=== PATIENT | female | born 1940 | race Caucasian/White ===

== ENCOUNTER → 2017-09-28 | Outpatient (CLI) | payer MEDICARE, OTHER ==
[~2017-09-28] MED LIST: ATENOLOL50 MG PO; BENICAR20 MG PO; COQ-10100 MG PO; EXCEDRIN MIGRA1 EAC3 PO; GLUCOSAMINE CH1 EAC2 PO; KRILL OIL500 MG PO; MECLIZINE HCL12.5 MG PO; OMEPRAZOLE PO; POTASSIUM CITR10 MEQ PO; POTASSIUM PO; PRAVASTATIN SOD10 MG PO; VESICARE5 MG PO; VITAMIN A8000 UNIT PO; VITAMIN B-121000 MC1 PO; VITAMIN C1000 MG PO; VITAMIN D1000 UNI1 PO; VITAMIN E400 UNI1 PO; ZINC SULFATE220 M1 PO
--- NOTE | 2017-09-29 10:31 | Diagnostic Imaging Report ---
PROCEDURE:HIPS BILAT W/PELVIS TECHNIQUE:Pelvis one view, right hip 2 views and left hip 2 views INDICATION:Bilateral hip pain radiating down the back of the hip COMPARISON:None. FINDINGS: Mild degenerative changes in bilateral hip joints. The hips are otherwise unremarkable. Moderate degenerative changes of the lower lumbar spine especially at L3-L4, L4-L5, and L5-S1. Mild to moderate degenerative changes in bilateral SI joints. No fractures or dislocations. CONCLUSION: 1. 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 2. Moderate degenerative changes in the lower lumbar spine. Recommend lumbar x-rays to evaluate L4-L5 and L5-S1. Dictated by: Diaz Cunningham M.D. on 09/28/2017 at 17:36 Electronically approved by: Diaz Cunningham M.D. on 09/28/2017 at 17:36
== END ==
LOC: RAD 16:33
PROVIDERS: ATTEND Family Medicine
DX: M25.552 Pain in left hip (principal); M25.551 Pain in right hip
CPT/HCPCS: 73521

== ENCOUNTER 2020-06-03 09:30 | Inpatient (IN) | payer MEDICARE, OTHER ==
[~2020-06-03] VITALS: Ht 157.5 cm; Wt 63.7 kg
[2020-06-03] MEDS ORDERED: DILTIAZEM HCL 5 MG/ML 5 ML VIAL IV STA (10:03)
[2020-06-03] MEDS ORDERED: SODIUM CHLORIDE 0.9% 500ML 500 ML ONE (10:09)
[2020-06-03] MEDS ORDERED: DILTIAZEM HCL VIAL 5 ML ONE (10:09)
[2020-06-03] MEDS: SODIUM CHLORIDE 0.9% 1000ML 500 ML IV SCH ×3 (10:10→16:55)
[2020-06-03] MEDS ORDERED: ASPIRIN 81 MG CHEW TAB PO ONE (10:15)
[2020-06-03 10:25] LABS: BASOPHILS # (AUTO) 0.1 (0.0-0.1); BASOPHILS % 0.8 % (0.0-1.0); EOSINOPHILS # (AUTO) 0.3 (0.0-0.4); HEMOGLOBIN 15.7 g/dL (12.0-16.0); LYMPHOCYTES # (AUTO) 2.1 (1.0-3.2); LYMPHOCYTES % 32.4 % (18.0-39.1); MEAN CORPUSCULAR HEMOGLOBIN 32.2 pg (28-32); MEAN CORPUSCULAR HGB CONC 33.4 g/dL (31-35); MEAN CORPUSCULAR VOLUME 96.3 fL (81-99); MONOCYTES # (AUTO) 0.6 (0.2-0.8); MONOCYTES % 9.2 % (4.4-11.3); NEUTROPHILS # (AUTO) 3.4 (2.1-6.9); PLATELET COUNT 198 x10e3/uL (140-360); RED BLOOD COUNT 4.88 x10e6/uL (3.6-5.1); RED CELL DISTRIBUTION WIDTH 11.8 % (11.7-14.4)
[2020-06-03 10:36] LABS: CLARITY,URINE CLEAR (CLEAR); COLOR,URINE YELLOW (YELLOW); KETONES,URINE NEGATIVE (NEGATIVE); LEUKOCYTE ESTERASE ,URINE NEGATIVE (NEGATIVE); NITRITE,URINE NEGATIVE (NEGATIVE); PROTEIN,URINE DIPSTICK NEGATIVE (NEGATIVE); URINE UROBILINOGEN 0.2 mg/dL (0.2 - 1)
[2020-06-03 10:46] LABS: ALBUMIN 4.4 g/dL (3.5-5.0); ALBUMIN/GLOBULIN RATIO 1.1 (0.8-2.0); ANION GAP 16.2 mmol/L (8-16); CALCIUM 9.9 mg/dL (8.4-10.2); CREATININE, SERUM 0.93 mg/dL (0.57-1.11); POTASSIUM 4.2 mmol/L (3.5-5.1)
[2020-06-03 11:10] LABS: BACTERIA,URINE RARE /HPF; EPITHELIAL CELLS,URINE RARE /LPF; INR 0.84; RBC,URINE 0-5 /HPF (0-5); WBC,URINE (MAN) 0-5 /HPF (0-5)
[2020-06-03 11:11] LABS: PARTIAL THROMBOPLASTIN TIME 32.7 seconds (23.8-35.5)
[2020-06-03 11:20] LABS: CREATINE KINASE MB 1.4 ng/mL (0-5.0); THYROID STIMULATING HORMONE 2.26 uIU/mL (0.350-4.940)
[2020-06-03] MEDS ORDERED: NITROGLYCERIN 0.4 MG SUBL SL PRN (12:45)
[2020-06-03] MEDS ORDERED: ONDANSETRON HCL INJ 2MG/ML 2ML 2 MG/ML VIAL IV PRN ×2 (12:45→13:30)
[2020-06-03] MEDS: FAMOTIDINE 20 MG/2 ML VIAL IV SCH (13:21)
[2020-06-03] MEDS ORDERED: DEXTROSE 50% SYRINGE 50 ML IV PRN (13:30)
[2020-06-03] MEDS ORDERED: ACETAMINOPHEN 325 MG TAB PO PRN (13:30)
[2020-06-03] MEDS ORDERED: SIMETHICONE 80 MG CHEW PO PRN (13:30)
[2020-06-03] MEDS ORDERED: POTASSIUM CHLORIDE 20 MEQ TAB CR PO PRN (13:30)
[2020-06-03] MEDS ORDERED: LIDOCAINE 4% PATCH TP PRN (13:30)
[2020-06-03] MEDS ORDERED: DOCUSATE SODIUM 100 MG CAP PO PRN (13:30)
[2020-06-03] MEDS ORDERED: ALBUTEROL/IPRATROPIUM 3 ML NEB NEB PRN (13:30)
[2020-06-03] MEDS ORDERED: BENZONATATE 100 MG CAP PO PRN (13:30)
[2020-06-03] MEDS ORDERED: POLYETHYLENE GLYCOL 3350 17 GM PACK PO PRN (13:30)
[2020-06-03] MEDS ORDERED: HYDRALAZINE HCL 20 MG/ML VIAL IV PRN (13:30)
[2020-06-03] MEDS ORDERED: DIPHENHYDRAMINE HCL 25 MG CAP PO PRN (13:30)
[2020-06-03 14:45] VITALS: BP 138/102
[2020-06-03 15:30] VITALS: BP 138/102
[2020-06-03 16:00] VITALS: BP 123/110
[2020-06-03 16:05] VITALS: BP 138/102
[2020-06-03] MEDS ORDERED: TRAZODONE HCL50 MG PO (16:50)
[2020-06-03] MEDS ORDERED: ENOXAPARIN SOD INJ 40 MG/0.4 ML SYR SC SCH (17:00)
[2020-06-03 18:34] LABS: CREATINE KINASE MB 1.3 ng/mL (0-5.0)
[2020-06-03] MEDS ORDERED: METOPROLOL TARTRATE 50 MG TAB PO ONE (19:45)
[2020-06-03 20:00] VITALS: BP 146/80
[2020-06-03 20:15] VITALS: BP 146/80
[2020-06-03] MEDS: AMIODARONE HCL 200 MG TAB PO SCH (20:15)
[2020-06-03] MEDS ORDERED: MELATONIN 5 MG TABLET PO PRN (21:00)
[2020-06-04] VITALS (10 sets, daily range): BP systolic 109–142; BP diastolic 52–87
[2020-06-04] MEDS: FAMOTIDINE 20 MG/2 ML VIAL IV SCH ×2 (00:47→16:24)
[2020-06-04 05:56] LABS: BASOPHILS % 0.6 % (0.0-1.0); EOSINOPHILS # (AUTO) 0.3 (0.0-0.4); EOSINOPHILS % 3.6 % (0.0-6.0); HEMATOCRIT 38.1 % (34.2-44.1); HEMOGLOBIN 12.8 g/dL (12.0-16.0); LYMPHOCYTES # (AUTO) 2.1 (1.0-3.2); LYMPHOCYTES % 29.9 % (18.0-39.1); MEAN CORPUSCULAR HEMOGLOBIN 32.6 pg (28-32); MEAN CORPUSCULAR HGB CONC 33.6 g/dL (31-35); MEAN CORPUSCULAR VOLUME 96.9 fL (81-99); MONOCYTES # (AUTO) 0.6 (0.2-0.8); MONOCYTES % 8.3 % (4.4-11.3); NEUTROPHILS # (AUTO) 3.9 (2.1-6.9); PLATELET COUNT 167 x10e3/uL (140-360); RED BLOOD COUNT 3.93 x10e6/uL (3.6-5.1); RED CELL DISTRIBUTION WIDTH 11.6 % (11.7-14.4)
[2020-06-04 06:17] LABS: ALANINE AMINOTRANSFERASE 22 IU/L (0-55); ALBUMIN 3.3 g/dL (3.5-5.0); ALBUMIN/GLOBULIN RATIO 1.1 (0.8-2.0); ALKALINE PHOSPHATASE 43 IU/L (40-150); ANION GAP 13.9 mmol/L (8-16); BLOOD UREA NITROGEN 18 mg/dL (7-26); BUN/CREATININE RATIO 22 (6-25); CALCIUM 8.4 mg/dL (8.4-10.2); CARBON DIOXIDE 21 mmol/L (22-29); CHLORIDE 106 mmol/L (98-107); CHOL/HDL RATIO 2.8 (3.0-3.6); CHOLESTEROL 138 MD/DL (0-199); CREATININE, SERUM 0.83 mg/dL (0.57-1.11); EST GLOMERULAR FILTRATION RATE > 60 ML/MIN (60-); GLUCOSE 135 mg/dL (74-118); HDL CHOLESTEROL 49 MG/DL (40-60); LDL CHOLESTEROL 67 MG/DL (60-130); POTASSIUM 3.9 mmol/L (3.5-5.1); SODIUM 137 mmol/L (136-145); TRIGLYCERIDES 108 MG/DL (0-149)
[2020-06-04 06:41] LABS: CREATINE KINASE MB 1.5 ng/mL (0-5.0)
[2020-06-04] MEDS ORDERED: ONDANSETRON HCL 4 MG ORAL DISINTEGRATING TAB PO PRN (06:45)
[2020-06-04 07:04] LABS: MAGNESIUM 1.8 MG/DL (1.3-2.1); PHOSPHORUS 3.2 MG/DL (2.3-4.7)
[2020-06-04 07:27] LABS: THYROID STIMULATING HORMONE 1.618 uIU/mL (0.350-4.940)
[2020-06-04] MEDS: PANTOPRAZOLE SOD 40 MG TABEC PO SCH (08:56)
[2020-06-04] MEDS: AMIODARONE HCL 200 MG TAB PO SCH ×3 (08:56→20:40)
[2020-06-04] MEDS: ASPIRIN 81 MG ENTERIC COATED PO SCH (08:56)
[2020-06-04] MEDS: METOPROLOL TARTRATE 25 MG TAB PO SCH ×2 (09:30→16:14)
[2020-06-04 15:24] LABS: CREATINE KINASE MB 1.3 ng/mL (0-5.0)
[2020-06-04] MEDS ORDERED: MULTI-VITAMIN1 EACH PO (20:56)
[2020-06-04] MEDS ORDERED: PRAVASTATIN 20 MG TAB PO SCH (21:00)
[2020-06-04] MEDS: ATENOLOL 50 MG TAB PO SCH (21:19)
[2020-06-05] MEDS: FAMOTIDINE 20 MG/2 ML VIAL IV SCH ×2 (00:30→11:45)
[2020-06-05 05:32] VITALS: BP 98/50
[2020-06-05 07:56] VITALS: BP 98/50
[2020-06-05 08:13] VITALS: BP 125/56
[2020-06-05] MEDS: METOPROLOL TARTRATE 25 MG TAB PO SCH (08:36)
[2020-06-05] MEDS: PANTOPRAZOLE SOD 40 MG TABEC PO SCH (11:45)
[2020-06-05] MEDS: ATENOLOL 50 MG TAB PO SCH (11:45)
[2020-06-05] MEDS: ASPIRIN 81 MG ENTERIC COATED PO SCH (11:45)
[2020-06-05 11:59] VITALS: BP 106/50
[2020-06-05] MEDS ORDERED: TENORMIN25 MG PO (15:46)
[2020-07-03] MEDS ORDERED: TOPROL XL50 MG PO (15:16)
== END 2020-06-05 16:20 | disposition home or self-care (01) | DRG 310 ==
LOC: ER 09:40 → ERHOLD 12:43 → MED/SURG 14:45
PROVIDERS: ADMIT Internal Medicine; ATTEND Internal Medicine
DX: I47.1 Supraventricular tachycardia (principal); I48.92 Unspecified atrial flutter; I49.5 Sick sinus syndrome; R00.2 Palpitations; I10 Essential (primary) hypertension; E78.5 Hyperlipidemia, unspecified; Z96.652 Presence of left artificial knee joint; Z83.3 Family history of diabetes mellitus; Z80.1 Family history of malignant neoplasm of trachea, bronchus and lung; Z80.2 Family history of malignant neoplasm of other respiratory and intrathoracic organs; Z84.89 Family history of other specified conditions; Z20.822 Contact with and (suspected) exposure to COVID-19
CPT/HCPCS: 36415; 71045; 80053; 80061; 81001; 82550; 82553; 83036; 83735; 83880; 84100; 84443; 84484; 85025; 85610; 85730; 87086; 87186; 93005; 93306; 96360; 99284; J7030; J7040; U0002

== ENCOUNTER 2020-06-29 09:58 | Inpatient (IN) | payer MEDICARE, OTHER ==
[~2020-06-29] VITALS: Ht 157.5 cm; Wt 63.5 kg
[~2020-06-29 09:58] MED LIST changes: +MULTI-VITAMIN1 EACH PO; +TENORMIN25 MG PO; +TRAZODONE HCL50 MG PO
[2020-06-29] MEDS ORDERED: ASPIRIN 81 MG CHEW TAB PO ONE ×2 (10:15→11:45)
[2020-06-29 10:29] LABS: BASOPHILS % 0.5 % (0.0-1.0); EOSINOPHILS # (AUTO) 0.2 (0.0-0.4); EOSINOPHILS % 3.2 % (0.0-6.0); HEMATOCRIT 43.1 % (34.2-44.1); HEMOGLOBIN 14.3 g/dL (12.0-16.0); LYMPHOCYTES # (AUTO) 2.1 (1.0-3.2); LYMPHOCYTES % 36.2 % (18.0-39.1); MEAN CORPUSCULAR HEMOGLOBIN 32.4 pg (28-32); MEAN CORPUSCULAR HGB CONC 33.2 g/dL (31-35); MEAN CORPUSCULAR VOLUME 97.7 fL (81-99); MONOCYTES # (AUTO) 0.4 (0.2-0.8); MONOCYTES % 7.8 % (4.4-11.3); NEUTROPHILS # (AUTO) 2.9 (2.1-6.9); NEUTROPHILS % 51.6 % (38.7-80.0); PLATELET COUNT 191 x10e3/uL (140-360); RED BLOOD COUNT 4.41 x10e6/uL (3.6-5.1); RED CELL DISTRIBUTION WIDTH 11.7 % (11.7-14.4)
[2020-06-29 10:48] LABS: ALANINE AMINOTRANSFERASE 22 IU/L (0-55); ALBUMIN/GLOBULIN RATIO 1.1 (0.8-2.0); ALKALINE PHOSPHATASE 50 IU/L (40-150); ANION GAP 15.3 mmol/L (8-16); BLOOD UREA NITROGEN 26 mg/dL (7-26); BUN/CREATININE RATIO 30 (6-25); CALCIUM 9.4 mg/dL (8.4-10.2); CARBON DIOXIDE 23 mmol/L (22-29); CHLORIDE 107 mmol/L (98-107); CREATINE KINASE 112 IU/L (29-168); CREATININE, SERUM 0.88 mg/dL (0.57-1.11); EST GLOMERULAR FILTRATION RATE > 60 ML/MIN (60-); GLUCOSE 134 mg/dL (74-118); POTASSIUM 4.3 mmol/L (3.5-5.1); SODIUM 141 mmol/L (136-145)
[2020-06-29] MEDS ORDERED: MORPHINE SULFATE INJ 2 MG/ML SYR IV PRN (11:45)
[2020-06-29] MEDS ORDERED: ONDANSETRON HCL INJ 2MG/ML 2ML 2 MG/ML VIAL IV PRN (11:45)
[2020-06-29] MEDS ORDERED: MORPHINE SULFATE INJ 4 MG/ML INJ 1ML IV PRN (12:00)
[2020-06-29 13:10] VITALS: BP 146/85
[2020-06-29 13:11] VITALS: BP 146/85
[2020-06-29 13:14] VITALS: BP 146/85
[2020-06-29 16:30] VITALS: BP 126/52
[2020-06-29 20:00] VITALS: BP 136/70
[2020-06-29] MEDS: TRAZODONE HCL 50 MG TAB PO SCH (21:00)
[2020-06-29 21:07] LABS: CREATINE KINASE MB 1.5 ng/mL (0-5.0)
[2020-06-30] VITALS (8 sets, daily range): BP systolic 97–139; BP diastolic 56–91
[2020-06-30 07:00] LABS: BASOPHILS # (AUTO) 0.1 (0.0-0.1); BASOPHILS % 0.7 % (0.0-1.0); EOSINOPHILS # (AUTO) 0.3 (0.0-0.4); HEMOGLOBIN 13.4 g/dL (12.0-16.0); LYMPHOCYTES # (AUTO) 2.8 (1.0-3.2); MEAN CORPUSCULAR HEMOGLOBIN 32.1 pg (28-32); MEAN CORPUSCULAR HGB CONC 33.5 g/dL (31-35); MEAN CORPUSCULAR VOLUME 95.9 fL (81-99); MONOCYTES # (AUTO) 0.8 (0.2-0.8); MONOCYTES % 10.3 % (4.4-11.3); NEUTROPHILS # (AUTO) 3.5 (2.1-6.9); NEUTROPHILS % 47.6 % (38.7-80.0); PLATELET COUNT 178 x10e3/uL (140-360); RED BLOOD COUNT 4.17 x10e6/uL (3.6-5.1); RED CELL DISTRIBUTION WIDTH 11.8 % (11.7-14.4)
[2020-06-30 07:12] LABS: ALANINE AMINOTRANSFERASE 18 IU/L (0-55); ALBUMIN 3.4 g/dL (3.5-5.0); ALBUMIN/GLOBULIN RATIO 1.1 (0.8-2.0); ALKALINE PHOSPHATASE 41 IU/L (40-150); BLOOD UREA NITROGEN 24 mg/dL (7-26); BUN/CREATININE RATIO 33 (6-25); CALCIUM 8.5 mg/dL (8.4-10.2); CARBON DIOXIDE 22 mmol/L (22-29); CHLORIDE 108 mmol/L (98-107); CREATININE, SERUM 0.72 mg/dL (0.57-1.11); EST GLOMERULAR FILTRATION RATE > 60 ML/MIN (60-); GLUCOSE 107 mg/dL (74-118); SODIUM 140 mmol/L (136-145)
[2020-06-30 07:27] LABS: CREATINE KINASE 85 IU/L (29-168)
[2020-06-30] MEDS: SOLIFENACIN SUCCINATE 5 MG TAB PO SCH (08:43)
[2020-06-30] MEDS: ZINC SULFATE 220 MG CAP PO SCH (08:50)
[2020-06-30] MEDS: PRAVASTATIN 20 MG TAB PO SCH (08:50)
[2020-06-30] MEDS: NON-FORMULARY MEDICATION (Ubidecarenone (Coq-10) 200 MG) PO SCH (09:00)
[2020-06-30] MEDS: NON-FORMULARY MEDICATION (Krill Oil 1 CAP) PO SCH (09:00)
[2020-06-30] MEDS: VITAMIN A PO SCH (09:00)
[2020-06-30] MEDS: [UNRECOGNIZED DRUG - MIXTURE] PO SCH (09:00)
[2020-06-30] MEDS: TRAZODONE HCL 50 MG TAB PO SCH (20:13)
[2020-06-30] MEDS: ACETAMINOPHEN 325 MG TAB PO PRN (23:58)
[2020-07-01] VITALS (8 sets, daily range): BP systolic 90–131; BP diastolic 53–71
[2020-07-01] MEDS: ACETAMINOPHEN 325 MG TAB PO PRN (06:17)
[2020-07-01] MEDS: NON-FORMULARY MEDICATION (Krill Oil 1 CAP) PO SCH (07:32)
[2020-07-01] MEDS: NON-FORMULARY MEDICATION (Ubidecarenone (Coq-10) 200 MG) PO SCH (07:32)
[2020-07-01] MEDS: [UNRECOGNIZED DRUG - MIXTURE] PO SCH (07:32)
[2020-07-01] MEDS: VITAMIN A PO SCH (07:32)
[2020-07-01] MEDS: ZINC SULFATE 220 MG CAP PO SCH (08:29)
[2020-07-01] MEDS: SOLIFENACIN SUCCINATE 5 MG TAB PO SCH (08:29)
[2020-07-01] MEDS: PRAVASTATIN 20 MG TAB PO SCH (08:29)
[2020-07-01] MEDS: TRAZODONE HCL 50 MG TAB PO SCH (22:59)
[2020-07-02] VITALS (8 sets, daily range): BP systolic 115–148; BP diastolic 67–85
[2020-07-02] MEDS: ZINC SULFATE 220 MG CAP PO SCH (09:00)
[2020-07-02] MEDS: VITAMIN A PO SCH (09:00)
[2020-07-02] MEDS: NON-FORMULARY MEDICATION (Krill Oil 1 CAP) PO SCH (09:00)
[2020-07-02] MEDS: SOLIFENACIN SUCCINATE 5 MG TAB PO SCH (09:00)
[2020-07-02] MEDS: PRAVASTATIN 20 MG TAB PO SCH (09:00)
[2020-07-02] MEDS: NON-FORMULARY MEDICATION (Ubidecarenone (Coq-10) 200 MG) PO SCH (09:00)
[2020-07-02] MEDS: [UNRECOGNIZED DRUG - MIXTURE] PO SCH (09:00)
[2020-07-02] MEDS ORDERED: ONDANSETRON HCL 4 MG ORAL DISINTEGRATING TAB PO PRN (10:00)
[2020-07-02] MEDS ORDERED: MIDAZOLAM HCL 2 MG/2 ML VIAL ONE ×2 (10:55→12:54)
[2020-07-02] MEDS ORDERED: FENTANYL CITRATE/PF 100MCG/2 ML INJ ONE (10:55)
[2020-07-02] MEDS ORDERED: LIDOCAINE HCL 2% LOCAL 20 ML VIAL ONE (10:55)
[2020-07-02] MEDS ORDERED: VANCOMYCIN 1GM/NS 250 ML 250 ML ONE ×2 (10:56→11:19)
[2020-07-02] MEDS ORDERED: SODIUM CHLORIDE 0.9% 500ML 500 ML ONE (10:56)
[2020-07-02] MEDS ORDERED: SODIUM CHLORIDE 0.9% 1000ML 2,000 ML ONE (10:56)
[2020-07-02] MEDS ORDERED: SODIUM CHLORIDE 0.9% 50ML 0 ML ONE (11:18)
[2020-07-02] MEDS ORDERED: CEFAZOLIN SOD 1 GM VIAL ONE (11:19)
[2020-07-02] MEDS: ACETAMINOPHEN 325 MG TAB PO PRN (13:05)
[2020-07-02] MEDS ORDERED: MORPHINE SULFATE INJ 2 MG/ML SYR IV PRN (14:15)
[2020-07-02] MEDS: METOPROLOL SUCCINATE 50 MG TAB XL PO SCH (17:48)
[2020-07-02] MEDS: TRAZODONE HCL 50 MG TAB PO SCH (20:59)
[2020-07-02] MEDS: CEFAZOLIN SOD 2 GM/D5W 50ML 50 ML IV SCH (20:59)
[2020-07-02] MEDS: HYDROCODONE/APAP 5MG-325MG TAB PO PRN (21:00)
[2020-07-02] MEDS ORDERED: CEFAZOLIN SOD 1 GM VIAL IV SCH (22:00)
[2020-07-03 00:09] VITALS: BP 115/71
[2020-07-03] MEDS: CEFAZOLIN SOD 2 GM/D5W 50ML 50 ML IV SCH (03:50)
[2020-07-03 04:00] VITALS: BP 153/82
[2020-07-03] MEDS: HYDROCODONE/APAP 5MG-325MG TAB PO PRN ×2 (06:00→13:21)
[2020-07-03 07:11] VITALS: BP 108/69
[2020-07-03 07:57] VITALS: BP 108/69
[2020-07-03] MEDS: VITAMIN A PO SCH (09:00)
[2020-07-03] MEDS: NON-FORMULARY MEDICATION (Krill Oil 1 CAP) PO SCH (09:00)
[2020-07-03] MEDS: NON-FORMULARY MEDICATION (Ubidecarenone (Coq-10) 200 MG) PO SCH (09:00)
[2020-07-03] MEDS: [UNRECOGNIZED DRUG - MIXTURE] PO SCH (09:00)
[2020-07-03] MEDS: ZINC SULFATE 220 MG CAP PO SCH (10:24)
[2020-07-03] MEDS: SOLIFENACIN SUCCINATE 5 MG TAB PO SCH (10:24)
[2020-07-03] MEDS: PRAVASTATIN 20 MG TAB PO SCH (10:24)
[2020-07-03] MEDS: METOPROLOL SUCCINATE 50 MG TAB XL PO SCH (10:31)
[2020-07-03 11:20] VITALS: BP 126/65
[2020-07-03] MEDS ORDERED: TOPROL XL50 MG PO (15:16)
[2020-07-03 15:36] VITALS: BP 136/70
== END 2020-07-03 17:42 | disposition home or self-care (01) | DRG 243 ==
LOC: ER 10:02 → ERHOLD 11:55 → MED/SURG 12:38 → OBSVTOIN 06-30 14:59
PROVIDERS: ADMIT Internal Medicine; ATTEND Internal Medicine
PROC: 0JH606Z Insertion of Pacemaker, Dual Chamber into Chest Subcutaneous Tissue and Fascia, Open Approach (ICD-10-PCS; principal; 2020-07-02)
PROC: 02H63JZ Insertion of Pacemaker Lead into Right Atrium, Percutaneous Approach (ICD-10-PCS; 2020-07-02)
PROC: 02HK3JZ Insertion of Pacemaker Lead into Right Ventricle, Percutaneous Approach (ICD-10-PCS; 2020-07-02)
PROC: 3E0132A Introduction of Anti-Infective Envelope into Subcutaneous Tissue, Percutaneous Approach (ICD-10-PCS; 2020-07-02)
DX: I49.5 Sick sinus syndrome (principal); I47.1 Supraventricular tachycardia; I10 Essential (primary) hypertension; E78.00 Pure hypercholesterolemia, unspecified; I25.10 Atherosclerotic heart disease of native coronary artery without angina pectoris; Z88.8 Allergy status to other drugs, medicaments and biological substances; Z83.3 Family history of diabetes mellitus; Z80.1 Family history of malignant neoplasm of trachea, bronchus and lung; Z20.822 Contact with and (suspected) exposure to COVID-19
CPT/HCPCS: 33208; 36415; 71045; 75820; 80053; 82550; 82553; 83880; 84484; 85025; 85379; 93005; 99152; 99153; 99284; C1785; C1898; G0378; J0690; J2001; J2250; J2270; J3010; J3370; J7030; J7040; U0002

== ENCOUNTER 2020-12-13 23:00 | Emergency (ER) | payer MEDICARE, OTHER ==
[~2020-12-13] VITALS: Ht 157.5 cm; Wt 63.5 kg
[~2020-12-13 23:00] MED LIST changes: +TOPROL XL50 MG PO
== END 2020-12-13 23:59 | disposition home or self-care (01) ==
LOC: ER 23:20
DX: S01.21XA Laceration without foreign body of nose, initial encounter (principal); I10 Essential (primary) hypertension; E78.5 Hyperlipidemia, unspecified; Z79.899 Other long term (current) drug therapy; W22.8XXA Striking against or struck by other objects, initial encounter
CPT/HCPCS: 99282

== ENCOUNTER 2022-07-18 09:55 | Emergency (ER) | payer MEDICARE, OTHER ==
[~2022-07-18] VITALS: Ht 157.5 cm; Wt 61.2 kg
[2022-07-18] MEDS ORDERED: SODIUM CHLORIDE 0.9% 1000ML 1,000 ML IV STA (10:54)
[2022-07-18 11:10] LABS: BASOPHILS % 0.3 % (0.0-1.0); EOSINOPHILS # (AUTO) 0.1 (0.0-0.4); EOSINOPHILS % 1.5 % (0.0-6.0); HEMATOCRIT 40.7 % (34.2-44.1); HEMOGLOBIN 13.5 g/dL (12.0-16.0); LYMPHOCYTES # (AUTO) 1.3 (1.0-3.2); LYMPHOCYTES % 17.2 % (18.0-39.1); MEAN CORPUSCULAR HEMOGLOBIN 32.5 pg (28-32); MEAN CORPUSCULAR HGB CONC 33.2 g/dL (31-35); MEAN CORPUSCULAR VOLUME 97.8 fL (81-99); MONOCYTES # (AUTO) 0.6 (0.2-0.8); MONOCYTES % 7.3 % (4.4-11.3); NEUTROPHILS # (AUTO) 5.7 (2.1-6.9); NEUTROPHILS % 73.3 % (38.7-80.0); PLATELET COUNT 159 x10e3/uL (140-360); RED BLOOD COUNT 4.16 x10e6/uL (3.6-5.1); RED CELL DISTRIBUTION WIDTH 11.6 % (11.7-14.4)
[2022-07-18 11:26] LABS: INR 0.94; PROTHROMBIN TIME 13.1 seconds (11.9-14.5)
[2022-07-18 11:38] LABS: ALANINE AMINOTRANSFERASE 23 IU/L (0-55); ALBUMIN 3.9 g/dL (3.5-5.0); ALBUMIN/GLOBULIN RATIO 1.3 (0.8-2.0); ALKALINE PHOSPHATASE 55 IU/L (40-150); ANION GAP 15.1 mmol/L (8-16); BLOOD UREA NITROGEN 16 mg/dL (7-26); BUN/CREATININE RATIO 20 (6-25); CALCIUM 9.5 mg/dL (8.4-10.2); CARBON DIOXIDE 23 mmol/L (22-29); CHLORIDE 106 mmol/L (98-107); CREATINE KINASE 175 IU/L (29-168); GLUCOSE 140 mg/dL (74-118); MAGNESIUM 1.9 MG/DL (1.3-2.1); POTASSIUM 4.1 mmol/L (3.5-5.1); SODIUM 140 mmol/L (136-145)
[2022-07-18 13:55] VITALS: BP 142/67
== END 2022-07-18 13:20 | disposition home or self-care (01) ==
LOC: ER 10:35
DX: K92.1 Melena (principal); I10 Essential (primary) hypertension; E78.5 Hyperlipidemia, unspecified; Z20.822 Contact with and (suspected) exposure to COVID-19
CPT/HCPCS: 0223U; 36415; 80053; 82550; 82553; 83735; 84484; 85025; 85610; 85730; 93005; 99283; C9113; J7030

== ENCOUNTER 2023-02-14 13:48 | Emergency (ER) | payer OTHER, MEDICARE ==
[~2023-02-14] VITALS: Ht 157.5 cm; Wt 61.2 kg
[~2023-02-14 13:48] MED LIST changes: +LEVOFLOXACIN250 MG PO; +LEVOFLOXACIN500 MG PO
[2023-02-14 15:32] VITALS: BP 121/62; PULSE 79; RESP 16; TEMP 98.6; O2SAT 96
== END 2023-02-14 15:30 | disposition home or self-care (01) ==
LOC: ER 13:55
DX: S00.83XA Contusion of other part of head, initial encounter (principal); W01.0XXA Fall on same level from slipping, tripping and stumbling without subsequent striking against object, initial encounter; Y93.01 Activity, walking, marching and hiking; Y92.22 Religious institution as the place of occurrence of the external cause; I10 Essential (primary) hypertension; E78.5 Hyperlipidemia, unspecified
CPT/HCPCS: 70450; 72125; 99283

== ENCOUNTER 2023-03-28 18:05 | Emergency (ER) | payer MEDICARE, OTHER ==
[~2023-03-28] VITALS: Ht 157.5 cm; Wt 61.2 kg
[2023-03-28 20:53] VITALS: O2SAT 96
== END 2023-03-28 20:53 | disposition home or self-care (01) ==
LOC: ER 18:23
DX: S80.01XA Contusion of right knee, initial encounter (principal); M54.2 Cervicalgia; M25.511 Pain in right shoulder; W01.0XXA Fall on same level from slipping, tripping and stumbling without subsequent striking against object, initial encounter; Y93.01 Activity, walking, marching and hiking; Y92.89 Other specified places as the place of occurrence of the external cause
CPT/HCPCS: 70450; 72125; 99283

== ENCOUNTER 2024-05-12 09:45 | Emergency (ER) | payer MEDICARE, OTHER ==
[~2024-05-12] VITALS: Ht 157.5 cm; Wt 63.1 kg
[2024-05-12] MEDS ORDERED: ASPIRIN EC81 MG PO (10:24)
[2024-05-12] MEDS ORDERED: BENZONATATE100 MG PO (11:18)
[2024-05-12 11:44] VITALS: PULSE 63; RESP 14; TEMP 97.5; O2SAT 96
== END 2024-05-12 11:44 | disposition home or self-care (01) ==
LOC: FSED 09:58
DX: R07.89 Other chest pain (principal); J06.9 Acute upper respiratory infection, unspecified; I10 Essential (primary) hypertension; E78.5 Hyperlipidemia, unspecified; M19.09 Primary osteoarthritis, other specified site; Z11.52 Encounter for screening for COVID-19
CPT/HCPCS: 0223U; 71046; 84484; 87400; 93005; 99284

== ENCOUNTER 2025-02-24 14:31 | Emergency (ER) | payer MEDICARE, OTHER ==
[~2025-02-24] VITALS: Ht 157.5 cm; Wt 63.5 kg
[~2025-02-24 14:31] MED LIST changes: +ASPIRIN EC81 MG PO; +BENZONATATE100 MG PO
[2025-02-24 14:58] VITALS: RESP 18; TEMP 98.2
[2025-02-24 15:30] VITALS: PULSE 63; O2SAT 98
== END 2025-02-24 15:43 | disposition home or self-care (01) ==
LOC: ER 14:39
DX: R60.9 Edema, unspecified (principal); I10 Essential (primary) hypertension; E78.5 Hyperlipidemia, unspecified; Z95.810 Presence of automatic (implantable) cardiac defibrillator; Z96.652 Presence of left artificial knee joint
CPT/HCPCS: 93970; 99283